=== PATIENT | male | born 1950 | race African-American/Black ===

== ENCOUNTER 2023-05-01 09:32 | Emergency (ER) | payer MEDICARE ==
[~2023-05-01] VITALS: Ht 182.9 cm; Wt 73.0 kg
[2023-05-01 09:37] VITALS: TEMP 97.9; O2SAT 96
[2023-05-01 10:58] LABS: BASOPHILS % 0.6 % (0.0-2.0); HEMATOCRIT. 37.2 % (42.0-52.0); HEMOGLOBIN. 12.3 g/dL (14.0-18.0); LYMPHOCYTES % 22.3 % (20.0-50.0); MEAN CORPUSCULAR HEMOGLOBIN 31.2 pg (28.0-32.0); MEAN CORPUSCULAR VOLUME 94.5 fL (80.0-94.0); MEAN PLATELET VOLUME 7.5 fl (7.4-10.4); MONOCYTES % 9.9 % (2.0-8.0); NEUTROPHILS % 66.2 % (40.0-76.0); PLATELET 132 x1000/uL (130-400); RED BLOOD CELL COUNT 3.93 mill/uL (4.7-6.1); RED CELL DISTRIBUTION WIDTH 15.3 % (11.6-14.6); WHITE BLOOD COUNT 2.4 x1000/uL (4.5-11.0)
[2023-05-01 11:15] LABS: ALANINE AMINOTRANSFERASE < 7 IU/L (10-49); ALBUMIN 4.5 g/dL (3.2-4.8); ASPARTATE AMINOTRANSFERASE 19 IU/L (<34); BILIRUBIN TOTAL 0.4 mg/dL (0.1-1.0); CALCIUM 9.3 mg/dL (8.7-10.4); CARBON DIOXIDE 32 mEq/L (21-32); CHLORIDE 101 mEq/L (98-107); CREATININE 0.7 mg/dL (0.6-1.3); GLUCOSE 118 mg/dL (70-105); POTASSIUM 3.7 mEq/L (3.5-5.1); SODIUM 136 mEq/L (136-145); TROPONIN I HIGH SENSITIVITY 8 ng/L (3.0-53); UREA NITROGEN BLOOD 7 mg/dL (9-23)
[2023-05-01] MEDS ORDERED: ALBUTEROL (0.083%) 2.5MG/3ML NEB HHN STA (11:15)
[2023-05-01] MEDS: METHYLPREDNISOLONE SOD SUCC 125MG/2ML (ACT-O-VIAL) IV STA (11:15)
[2023-05-01] MEDS ORDERED: P50 MT (12:48)
[2023-05-01] MEDS ORDERED: ALBU6.7H15 INH (12:48)
[2023-05-01] MEDS ORDERED: ALBU05 NEB (12:48)
[2023-05-01 13:30] VITALS: BP 141/78; PULSE 77; RESP 19
== END 2023-05-01 13:30 | disposition home or self-care (01) ==
LOC: ER 10:51
DX: J44.1 Chronic obstructive pulmonary disease with (acute) exacerbation (principal); Z20.822 Contact with and (suspected) exposure to COVID-19; Z98.890 Other specified postprocedural states
CPT/HCPCS: 36415; 71045; 80053; 83880; 84484; 85025; 87426; 93005; 99285

== ENCOUNTER 2024-02-11 11:48 | Inpatient (IN) | payer MEDICARE, OTHER ==
[~2024-02-11] VITALS: Ht 190.5 cm; Wt 86.6 kg
[~2024-02-11 11:48] MED LIST: ALBU05 NEB; ALBU6.7H15 INH; P50 MT
[2024-02-11 12:55] LABS: BASOPHILS % 0.4 % (0.0-2.0); EOSINOPHILS % 0.2 % (0.0-5.0); HEMATOCRIT. 34.1 % (42.0-52.0); LYMPHOCYTES % 16.9 % (20.0-50.0); MEAN CORPUSCULAR HEMOGLOBIN 27.3 pg (28.0-32.0); MEAN CORPUSCULAR HGB CONC 32.2 g/dL (31.0-37.0); MEAN PLATELET VOLUME 7.2 fl (7.4-10.4); NEUTROPHILS % 73.5 % (40.0-76.0); PLATELET 352 x1000/uL (130-400); RED BLOOD CELL COUNT 4.01 mill/uL (4.7-6.1); RED CELL DISTRIBUTION WIDTH 15.1 % (11.6-14.6); WHITE BLOOD COUNT 5.8 x1000/uL (4.5-11.0)
[2024-02-11] MEDS: METHYLPREDNISOLONE SOD SUCC 125MG/2ML (ACT-O-VIAL) IV STA (12:58)
[2024-02-11 13:04] LABS: CHLORIDE 96 mEq/L (98-107); POTASSIUM 4.4 mEq/L (3.5-5.1); SODIUM 136 mEq/L (136-145)
[2024-02-11 13:05] LABS: CALCIUM 10.1 mg/dL (8.7-10.4); CARBON DIOXIDE 31 mEq/L (21-32)
[2024-02-11 13:10] LABS: CREATININE 0.7 mg/dL (0.6-1.3); GLUCOSE 121 mg/dL (70-105); UREA NITROGEN BLOOD 12 mg/dL (9-23)
[2024-02-11] MEDS ORDERED: LEVOFLOXACIN 750MG PREMIX 150 ML IV NR (13:30)
[2024-02-11 13:55] VITALS: PULSE 94; RESP 24; O2SAT 99
[2024-02-11 13:56] LABS: TROPONIN I HIGH SENSITIVITY 1348 ng/L (3.0-53)
[2024-02-11] MEDS: CEFTRIAXONE 1GM/50ML 50ML IV NR (14:03)
[2024-02-11] MEDS: ALBUTEROL (0.083%) 2.5MG/3ML NEB HHN STA (14:03)
[2024-02-11] MEDS: IPRATROPIUM BROMIDE (0.02%) 0.5MG/2.5ML NEB HHN STA (14:03)
[2024-02-11] MEDS: DOXYCYCLINE 100MG/100ML 100 ML IV NR (14:25)
[2024-02-11] MEDS: ASPIRIN 325MG EC TABLET PO NR (16:15)
[2024-02-11] MEDS: ENOXAPARIN 100MG/ML SYR SUBCUT NR (16:53)
[2024-02-11] MEDS ORDERED: IPRATROPIUM/ALBUTEROL 0.5-3(2.5)MG/3ML NEB HHN PRN (17:45)
[2024-02-11] MEDS ORDERED: ONDANSETRON HCL 4MG/2ML INJ IV PRN (17:45)
[2024-02-11] MEDS ORDERED: ACETAMINOPHEN 325MG TABLET PO PRN ×2 (17:45)
[2024-02-11] MEDS: IOHEXOL-350 100 ML BOTTLE ONE (17:58)
[2024-02-11 18:00] VITALS: PULSE 100; RESP 24; O2SAT 96
[2024-02-11] MEDS: IPRATROPIUM/ALBUTEROL 0.5-3(2.5)MG/3ML NEB HHN SCH (18:02)
[2024-02-11] MEDS ORDERED: DEXTROSE 50% WATER 50ML SYRINGE IV PRN (18:15)
[2024-02-11] MEDS ORDERED: AMLO10TA80 PO (18:23)
[2024-02-11] MEDS ORDERED: TIOT4MIS2 IH (18:23)
[2024-02-11] MEDS ORDERED: LEVO125T8 PO (18:23)
[2024-02-11] MEDS: INSULIN LISPRO 100 UNITS/ML SUBCUT SCH (18:30)
[2024-02-11 18:34] VITALS: RESP 31
[2024-02-11] MEDS: BLOOD SUGAR DIAGNOSTIC STRIP TEST SCH (18:41)
[2024-02-11] MEDS: FUROSEMIDE 40MG/4ML VIAL IVP NR (18:53)
[2024-02-11] MEDS: PANTOPRAZOLE SODIUM 40 MG/VIAL IV SCH (18:53)
[2024-02-11 20:07] LABS: BG BASE EXCESS -3.2 mmol/L (-2.0-3.0); BG FRACTION INSPIRED OXYGEN 60; BG HCO3 ACT 26.3 mmol/L (21.0-28.0); BG PCO2 67.3 mmHg (35.0-48.0); BG PO2 76.8 mmHg (83.0-108.0); BG VENT MODE MASK - BIPAP
[2024-02-11 20:36] VITALS: RESP 30
[2024-02-11] MEDS: IPRATROPIUM/ALBUTEROL 0.5-3(2.5)MG/3ML NEB HHN NR (20:36)
[2024-02-11 20:47] LABS: ALANINE AMINOTRANSFERASE 14 IU/L (10-49); ALBUMIN 4.2 g/dL (3.2-4.8); ASPARTATE AMINOTRANSFERASE 30 IU/L (<34); BILIRUBIN DIRECT 0.2 mg/dL (<=3.0); BILIRUBIN TOTAL 0.5 mg/dL (0.1-1.0); PROTEIN TOTAL 8.2 g/dL (6.0-8.3)
[2024-02-11 20:49] LABS: T4 FREE 1.95 ng/dL (0.89-1.76)
[2024-02-11 21:23] LABS: TROPONIN I HIGH SENSITIVITY 1052 ng/L (3.0-53)
[2024-02-11 21:24] LABS: LACTIC ACID 3.7 mmol/L (0.4-2.0)
[2024-02-11] MEDS: METHYLPREDNISOLONE SOD SUCC 40MG/ML (ACT-O-VIAL) IV SCH (21:27)
[2024-02-11] MEDS: ATORVASTATIN CALCIUM 40MG TABLET PO SCH (22:07)
[2024-02-12] VITALS (65 sets, daily range): BP systolic 88–134; BP diastolic 51–115; PULSE 79–113; RESP 13–29; TEMP 36.44736–36.9474; O2SAT 92–100
[2024-02-12 01:23] LABS: CREATINE KINASE MB FRACTION 19.3 ng/mL (0.5-3.6)
[2024-02-12 01:26] LABS: IRON 19 ug/dL (65-175)
[2024-02-12 01:28] LABS: TOTAL IRON BINDING CAPACITY 411 ug/dl (250-425)
[2024-02-12 01:42] LABS: FOLIC ACID (FOLATE) SERUM > 20.00 ng/mL (>5.38); VITAMIN B12 SERUM 660 pg/mL (211-911)
[2024-02-12 01:49] LABS: TROPONIN I HIGH SENSITIVITY 1403 ng/L (3.0-53)
[2024-02-12 01:50] LABS: INR 1.1; PROTHROMBIN TIME 12.5 sec (9.6-11.0)
[2024-02-12 06:17] LABS: INR 1.1; PROTHROMBIN TIME 12.4 sec (9.6-11.0)
[2024-02-12] MEDS: ENOXAPARIN 100MG/ML SYR SUBCUT SCH (06:26)
[2024-02-12 06:27] LABS: CHLORIDE 96 mEq/L (98-107); POTASSIUM 5.3 mEq/L (3.5-5.1); SODIUM 134 mEq/L (136-145)
[2024-02-12 06:28] LABS: CARBON DIOXIDE 30 mEq/L (21-32)
[2024-02-12 06:29] LABS: CALCIUM 9.6 mg/dL (8.7-10.4)
[2024-02-12 06:33] LABS: CREATININE 0.9 mg/dL (0.6-1.3); GLUCOSE 130 mg/dL (70-105)
[2024-02-12 06:34] LABS: LDL CHOLESTEROL 75 mg/dL (5-100); TRIGLYCERIDE 54 mg/dL (0-150); UREA NITROGEN BLOOD 21 mg/dL (9-23)
[2024-02-12 06:35] LABS: CHOLESTEROL 154 mg/dL (<200); HDL CHOLESTEROL 61 mg/dL (>55)
[2024-02-12 06:36] LABS: CREATINE KINASE MB FRACTION 20.8 ng/mL (0.5-3.6)
[2024-02-12 06:40] LABS: THYROID STIMULATING HORMONE < 0.10 uIU/mL (0.55-4.78)
[2024-02-12 07:45] LABS: TROPONIN I HIGH SENSITIVITY 1699 ng/L (3.0-53)
[2024-02-12 08:20] LABS: HEMATOCRIT. 32.1 % (42.0-52.0); HEMOGLOBIN. 10.2 g/dL (14.0-18.0); LYMPHOCYTES % 7.6 % (20.0-50.0); MEAN CORPUSCULAR HEMOGLOBIN 27.2 pg (28.0-32.0); MEAN CORPUSCULAR HGB CONC 31.8 g/dL (31.0-37.0); MEAN CORPUSCULAR VOLUME 85.7 fL (80.0-94.0); MEAN PLATELET VOLUME 7.5 fl (7.4-10.4); MONOCYTES % 3.2 % (2.0-8.0); NEUTROPHILS % 89.2 % (40.0-76.0); PLATELET 306 x1000/uL (130-400); RED BLOOD CELL COUNT 3.74 mill/uL (4.7-6.1); RED CELL DISTRIBUTION WIDTH 14.5 % (11.6-14.6); WHITE BLOOD COUNT 4.8 x1000/uL (4.5-11.0)
[2024-02-12] MEDS ORDERED: ASPIRIN 81MG TABLET PO SCH (09:00)
[2024-02-12] MEDS: ASPIRIN 81MG EC TABLET PO SCH (09:01)
[2024-02-12] MEDS: AMLODIPINE 5MG TABLET PO SCH (09:01)
[2024-02-12 09:58] LABS: BG BASE EXCESS 3.9 mmol/L (-2.0-3.0); BG DEOXYHEMOGLOBIN 1.1 % (0.0-5.0); BG FRACTION INSPIRED OXYGEN 60; BG HCO3 ACT 31.2 mmol/L (21.0-28.0); BG METHEMOGLOBIN 0.3 % (0.5-1.5); BG OXYGEN SATURATION 98.9 % (94.0-98.0); BG OXYHEMOGLOBIN 98.6 % (94.0-98.0); BG PCO2 61.3 mmHg (35.0-48.0); BG PH 7.324 (7.350-7.450); BG PO2 142.1 mmHg (83.0-108.0); BG SAMPLE SITE RIGHT RADIAL; BG TOTAL HEMOGLOBIN 10.6 g/dL (13.5-17.5); BG VENT MODE MASK - BIPAP
[2024-02-12 12:27] LABS: CLARITY URINE CLEAR (CLEAR); COLOR URINE YELLOW (YELLOW); GLUCOSE URINE NEGATIVE (NEGATIVE); KETONES URINE NEGATIVE (NEGATIVE); LEUKOCYTE ESTERASE URINE NEGATIVE (NEGATIVE); NITRITE URINE NEGATIVE (NEGATIVE); OCCULT BLOOD URINE NEGATIVE (NEGATIVE); PH URINE 5.5 (4.5-8.0); PROTEIN URINE TRACE (NEGATIVE)
[2024-02-12 12:51] LABS: *AMPHETAMINES SCREEN URINE NEGATIVE (NEGATIVE); *BARBITURATES SCREEN URINE NEGATIVE (NEGATIVE); *BENZODIAZEPINES SCREEN URINE PRESUMPTIVE POSITIVE (NEGATIVE); *COCAINE SCREEN URINE NEGATIVE (NEGATIVE); CANNABINOID URINE SCREEN PRESUMPTIVE POSITIVE (NEGATIVE); ECSTASY MDMA SCREEN URINE NEGATIVE (NEGATIVE); METHADONE URINE SCREEN NEGATIVE (NEGATIVE); OPIATES URINE SCREEN NEGATIVE (NEGATIVE); PHENCYCLIDINE URINE SCREEN NEGATIVE (NEGATIVE)
[2024-02-12 12:52] LABS: BACTERIA URINE 1+; RBC URINE NONE SEEN /hpf (0-2); SQUAMOUS EPITHELIAL CELL URINE NONE SEEN /lpf (RARE/1+); YEAST URINE NONE SEEN
[2024-02-12] MEDS ORDERED: CEFTRIAXONE 1GM/50ML 50 ML IV SCH (14:00)
[2024-02-12] MEDS ORDERED: DOXYCYCLINE 100MG/100ML 100 ML IV SCH (14:00)
[2024-02-12] MEDS: CEFTRIAXONE 1GM/50ML 50 ML IV SCH (15:40)
[2024-02-12] MEDS: DOXYCYCLINE 100MG/100ML 100 ML IV SCH (15:41)
[2024-02-12] MEDS: LEVOTHYROXINE SODIUM 100MCG TABLET PO SCH (15:43)
[2024-02-12] MEDS: INFLUENZA VACCINE 05/PF 0.5 ML SYRINGE IM ONE (15:49)
[2024-02-12 16:22] LABS: TROPONIN I HIGH SENSITIVITY 1277 ng/L (3.0-53)
[2024-02-12] MEDS: ENOXAPARIN 80MG/0.8ML SYR SUBCUT SCH (17:28)
[2024-02-12] MEDS: NITROGLYCERIN 0.4MG TABLET SL SL PRN (19:01)
[2024-02-12 21:27] LABS: TROPONIN I HIGH SENSITIVITY 1010 ng/L (3.0-53)
[2024-02-13] VITALS (18 sets, daily range): BP systolic 101–127; BP diastolic 63–92; PULSE 90–114; RESP 16–29; TEMP 36.6696–36.78072; O2SAT 92–100
[2024-02-13 02:07] LABS: TROPONIN I HIGH SENSITIVITY 956 ng/L (3.0-53)
[2024-02-13 07:06] LABS: CARBON DIOXIDE 29 mEq/L (21-32); CHLORIDE 95 mEq/L (98-107); POTASSIUM 4.5 mEq/L (3.5-5.1); SODIUM 133 mEq/L (136-145)
[2024-02-13 07:08] LABS: CALCIUM 9.6 mg/dL (8.7-10.4)
[2024-02-13 07:12] LABS: CREATININE 0.9 mg/dL (0.6-1.3); GLUCOSE 103 mg/dL (70-105); UREA NITROGEN BLOOD 35 mg/dL (9-23)
[2024-02-13 08:52] LABS: BASOPHILS % 0.1 % (0.0-2.0); HEMOGLOBIN. 9.9 g/dL (14.0-18.0); LYMPHOCYTES % 8.9 % (20.0-50.0); MEAN CORPUSCULAR HEMOGLOBIN 27.2 pg (28.0-32.0); MEAN CORPUSCULAR HGB CONC 32.1 g/dL (31.0-37.0); MEAN CORPUSCULAR VOLUME 84.7 fL (80.0-94.0); MEAN PLATELET VOLUME 7.8 fl (7.4-10.4); MONOCYTES % 6.4 % (2.0-8.0); NEUTROPHILS % 84.6 % (40.0-76.0); PLATELET 290 x1000/uL (130-400); RED BLOOD CELL COUNT 3.66 mill/uL (4.7-6.1); RED CELL DISTRIBUTION WIDTH 14.5 % (11.6-14.6); WHITE BLOOD COUNT 4.7 x1000/uL (4.5-11.0)
[2024-02-13] MEDS: IOHEXOL-350 100 ML BOTTLE ONE (09:24)
[2024-02-13] MEDS: IOHEXOL-300 100 ML BOTTLE ONE (09:24)
[2024-02-13 13:53] LABS: BG BASE EXCESS 0.9 mmol/L (-2.0-3.0); BG CARBOXYHEMOGLOBIN 0.3 % (0.5-1.5); BG DEOXYHEMOGLOBIN 19.3 % (0.0-5.0); BG HCO3 ACT 28.2 mmol/L (21.0-28.0); BG METHEMOGLOBIN 0.3 % (0.5-1.5); BG OXYGEN SATURATION 80.6 % (94.0-98.0); BG OXYHEMOGLOBIN 80.1 % (94.0-98.0); BG PCO2 58.7 mmHg (35.0-48.0); BG PH 7.299 (7.350-7.450); BG SAMPLE SITE RIGHT RADIAL; BG TOTAL HEMOGLOBIN 10.6 g/dL (13.5-17.5); BG VENT MODE NASAL CANNULA
[2024-02-14] MEDS ORDERED: FAMOTIDINE 20MG/2ML VIAL IV SCH (09:00)
== END 2024-02-13 22:00 | disposition short-term general hospital (02) | DRG 871 ==
LOC: ER 12:22 → MICUNO 16:44 → EDBEDREQ 16:46 → EDBEDREQSVC 20:07 → 5EST 02-12 22:37
PROVIDERS: ADMIT Preventive Medicine Clinical Informatics; ATTEND Preventive Medicine Clinical Informatics
PROC: 5A09357 Assistance with Respiratory Ventilation, Less than 24 Consecutive Hours, Continuous Positive Airway Pressure (ICD-10-PCS; principal; 2024-02-11)
PROC: 5A09357 Assistance with Respiratory Ventilation, Less than 24 Consecutive Hours, Continuous Positive Airway Pressure (ICD-10-PCS; 2024-02-12)
PROC: 5A09357 Assistance with Respiratory Ventilation, Less than 24 Consecutive Hours, Continuous Positive Airway Pressure (ICD-10-PCS; 2024-02-13)
DX: A41.9 Sepsis, unspecified organism (principal); I21.A1 Myocardial infarction type 2; J69.0 Pneumonitis due to inhalation of food and vomit; J96.01 Acute respiratory failure with hypoxia; I50.33 Acute on chronic diastolic (congestive) heart failure; J96.02 Acute respiratory failure with hypercapnia; J18.9 Pneumonia, unspecified organism; J98.11 Atelectasis; J44.1 Chronic obstructive pulmonary disease with (acute) exacerbation; J44.0 Chronic obstructive pulmonary disease with (acute) lower respiratory infection; E87.29 Other acidosis; Z20.822 Contact with and (suspected) exposure to COVID-19; I11.0 Hypertensive heart disease with heart failure; J43.9 Emphysema, unspecified; I25.10 Atherosclerotic heart disease of native coronary artery without angina pectoris; I71.43 Infrarenal abdominal aortic aneurysm, without rupture; I51.3 Intracardiac thrombosis, not elsewhere classified; D64.9 Anemia, unspecified; E03.9 Hypothyroidism, unspecified; M43.6 Torticollis; M79.641 Pain in right hand; M79.642 Pain in left hand; Z86.79 Personal history of other diseases of the circulatory system; Z79.899 Other long term (current) drug therapy; Z87.891 Personal history of nicotine dependence
CPT/HCPCS: 36415; 36600; 71045; 71275; 74178; 76700; 80048; 80061; 80076; 80305; 81003; 82375; 82553; 82607; 82746; 82805; 82962; 83036; 83540; 83550; 83605; 83880; 84145; 84439; 84443; 84481; 84484; 85025; 87426; 87804; 93005; 93306; 93970; 94070; 94640; 94660; 94664; 98960; 99291; J0696; J1650; J1815; J1940; J2470; J2919; J2920; J3490; Q9967